=== PATIENT | male | born 2000 | race Caucasian/White ===

== ENCOUNTER 2022-01-09 09:42 | Emergency (ER) | payer MEDICAID, OTHER ==
[~2022-01-09] VITALS: Ht 160 cm; Wt 51.0 kg
[2022-01-09 10:01] VITALS: BP 120/73
[2022-01-09] MEDS ORDERED: TETANUS, DIPHTHERIA, PERTUSSIS VAC/PF 0.5ML (>10YR OLD) IM ONE (10:45)
[2022-01-09] MEDS ORDERED: LIDOCAINE HCL 1% 20ML VIAL (Pyxis) INJ INFIL ONE (10:45)
[2022-01-09] MEDS: LIDOCAINE HCL 1% 20ML VIAL (Pyxis) INJ INFIL NR (11:56)
== END 2022-01-09 12:58 | disposition home or self-care (01) ==
LOC: ER 09:42
DX: S61.216A Laceration without foreign body of right little finger without damage to nail, initial encounter (principal); W22.8XXA Striking against or struck by other objects, initial encounter; W25.XXXA Contact with sharp glass, initial encounter; Y93.89 Activity, other specified; Y92.89 Other specified places as the place of occurrence of the external cause
CPT/HCPCS: 12001; 73120; 90471; 90715; 99283; J3490

== ENCOUNTER 2022-01-16 08:29 | Emergency (ER) | payer MEDICAID ==
[~2022-01-16] VITALS: Ht 167.6 cm; Wt 75.0 kg
[2022-01-16 08:40] VITALS: BP 135/72
== END 2022-01-16 10:53 | disposition home or self-care (01) ==
LOC: ER 08:29
DX: Z48.02 Encounter for removal of sutures (principal)
CPT/HCPCS: 99281